=== PATIENT | female | born 1965 | race Caucasian/White ===

== ENCOUNTER 2021-04-16 18:01 | Emergency (ER) | payer OTHER, SELFPAY ==
[2021-04-16 18:13] VITALS: BP 151/101; PULSE 99; RESP 16; TEMP 36.6; O2SAT 99
--- NOTE | 2021-04-16 18:24 | ED.EYEPROB ---
HPI - Eye Problem General Chief complaint: Eye Problems Stated complaint: Itchy Eyes Time Seen by Provider: 04/16/21 18:24 Source: patient and RN notes reviewed History of Present Illness HPI Narrative: Patient is a 55-year-old female who presents the urgent care with complaints of bilateral itchy eyes. Patient states is been ongoing for approximately 1 year and she feels that she has something poking her in her eye or grainy in her eye . Patient states she also feels like she might have a cricket in her right ear . Patient denies of any trauma or injury to the eyes. Denies of any chemical to the eyes. States that she has been using eyewash [id number] but denies of any other [id number] remedies or medications. Patient states that she has not been to an web content manager or PCP in quite some time. Patient appears to be under the influence of either drugs or alcohol. Patient is very fidgety. No acute distress noted. Patient aware of the plan of care. Some parts of this dictation were generated by voice recognition software and may contain typographical and/or grammatical inaccuracies. Related Data Allergies Allergy/AdvReac Type Severity Reaction Status Date / Time Penicillins Allergy Difficulty Verified 04/16/21 18:42 Breathing ivp dye Allergy Difficulty Uncoded 04/16/21 18:43 Breathing Review of Systems Review of Systems: Narrative: CONSTITUTIONAL: Denies fever, chills, or sweats. EYES: Denies visual changes, redness, or discharge. Reports of itchy bilateral eyes ENT: Denies rhinorrhea, congestion, sore throat. Reports of a possible cricket in the right ear CARDIOVASCULAR: Denies chest pain, palpitations, or edema. RESPIRATORY: Denies cough or dyspnea. GASTROINTESTINAL: Denies abdominal pain, nausea, vomiting, or diarrhea. GENITOURINARY: Denies dysuria or hematuria. SKIN: Denies rash or itching. MUSCULOSKELETAL: Denies back pain, joint pain, or myalgia. NEUROLOGIC: Denies headache, numbness, or weakness. All other systems reviewed are negative, except as documented in HPI. PMFSH Comments At the time of my signature, I reviewed and agree with the nursing past medical, surgical, social, and family history. There is no relevant family history pertinent to the patient complaint. Exam Narrative: Exam Narrative: GENERAL: This is a well-nourished, well-developed patient. Disheveled and fidgety HEAD: normocephalic, atraumatic. EYES: PERRL. Sclera clear/white. Vision is grossly intact. EARS: External ears normal, auditory canals clear and without drainage, TMs normal without perforation. Hearing grossly intact. NOSE: External nose normal with no obvious nasal discharge, nares without redness, no rhinorrhea. THROAT: Mucous membranes moist NECK: Neck supple SKIN: warm, intact with no suspicious lesions or rash, good texture and turgor. NEURO: awake, alert, and oriented to person, place and time. There were no obvious focal neurologic abnormalities. EXTREMITIES: No clubbing, cyanosis, or edema. Course Vital Signs Vital signs: Vital Signs Temperature 97.8 F 04/16/21 18:13 Pulse Rate 99 04/16/21 18:13 Respiratory Rate 16 04/16/21 18:13 Blood Pressure 151/101 H 04/16/21 18:13 Pulse Oximetry 99 04/16/21 18:13 Temperature 97.8 F 04/16/21 18:13 Pulse Rate 99 04/16/21 18:13 Respiratory Rate 16 04/16/21 18:13 Blood Pressure 151/101 H 04/16/21 18:13 Pulse Oximetry 99 04/16/21 18:13 Reviewed-patient is informed that they may have pre-hypertension or hypertension based on a blood pressure reading in the department. I recommend the patient call the primary care provider listed on their discharge instructions or a physician of their choice this week to arrange follow-up for further evaluation of possible pre-hypertension or hypertension. MDM - Eye Problem MDM Narrative Medical decision making narrative: Advised the patient to use the dry eyedrops as directed to each eye. Use an ov
== END 2021-04-16 18:50 | disposition home or self-care (01) ==
PROVIDERS: Emergency Provider Nurse Practitioner Family
DX: H04.123 Dry eye syndrome of bilateral lacrimal glands (principal); I10 Essential (primary) hypertension; K21.9 Gastro-esophageal reflux disease without esophagitis; M19.90 Unspecified osteoarthritis, unspecified site
CPT/HCPCS: 99213; G0463